=== PATIENT | female | born 2000 | race Caucasian/White ===

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

== ENCOUNTER 2019-03-09 15:22 | Emergency (ER) | payer BC ==
[2019-03-09] MEDS ORDERED: ACETAMINOPHEN 325 MG TABLET (FP) PO ONE (15:26)
--- NOTE | 2019-03-09 15:26 | PDOC ---
History of Present Illness - General Chief Complaint: Pain, Acute Stated Complaint: LEFT WRIST PAIN Time Seen by Provider: 03/09/19 15:25 Past History - Past Medical History Allergies/Adverse Reactions: Allergies Allergy/AdvReac Type Severity Reaction Status Date / Time amoxicillin [Amoxicillin] Allergy Verified 03/09/19 15:22 Home Medications: Ambulatory Orders NK [No Known Home Medication] 03/09/19 COPD: No - Immunization History Immunization Up to Date: Yes - Suicide/Smoking/Psychosocial Hx Smoking Status: No Smoking History: Never smoked Have you smoked in the past 12 months: No Number of Cigarettes Smoked Daily: 0 Hx Alcohol Use: No Drug/Substance Use Hx: No Substance Use Type: None *DC/Admit/Observation/Transfer - Discharge Dispostion Condition at time of disposition: Stable - Referrals - Patient Instructions - Post Discharge Activity
[2019-03-09] MEDS ORDERED: ACETAMINOPHEN 325 MG TABLET (FP) ONE (15:29)
[2019-03-09 15:37] VITALS: BP 131/88; PULSE 80; TEMP 98.4; BMI 21.1
--- NOTE | 2019-03-09 16:45 | PDOC ---
Documentation entered by Bonnie Lockhart SCRIBE, acting as scribe for Zeferino Burr MD. Zeferino Burr MD: This documentation has been prepared by the jose angelibRichy worley Natalie, SCRIBE, under my direction and personally reviewed by me in its entirety. I confirm that the documentation accurately reflects all work, treatment, procedures, and medical decision making performed by me. History of Present Illness - General Chief Complaint: Pain, Acute Stated Complaint: LEFT WRIST PAIN Time Seen by Provider: 03/09/19 15:25 History Source: Patient Exam Limitations: No Limitations - History of Present Illness Initial Comments: 03/09/19 15:55 The patient is a 18-year-old female, with no past medical history, who presents to the ED with LT wrist pain s/p mechanical fall. The patient states that she tripped and fell onto her LT wrist as she was getting out of her car. She denies any head trauma or loss of consciousness. The patient denies having any other injuries or symptoms. Allergies: Amoxicillin. Past History - Past Medical History Allergies/Adverse Reactions: Allergies Allergy/AdvReac Type Severity Reaction Status Date / Time amoxicillin [Amoxicillin] Allergy Verified 03/09/19 15:22 Home Medications: Ambulatory Orders NK [No Known Home Medication] 03/09/19 COPD: No - Immunization History Immunization Up to Date: Yes - Suicide/Smoking/Psychosocial Hx Smoking Status: No Smoking History: Never smoked Have you smoked in the past 12 months: No Number of Cigarettes Smoked Daily: 0 Hx Alcohol Use: No Drug/Substance Use Hx: No Substance Use Type: None Review of Systems - Review of Systems Able to Perform ROS?: Yes Comments:: 03/09/19 15:55 ADULT BASIC ROS CONSTITUTIONAL: Absent: fever, no chills, no fatigue EYES: Absent: visual changes ENT: Absent: ear pain, no sore throat CARDIOVASCULAR: Absent: chest pain, no palpitations RESPIRATORY: Absent: cough, no SOB GI: Absent: abdominal pain, no nausea, no vomiting, no constipation, no diarrhea GENITOURINARY: Absent: dysuria, no frequency, no hematuria MUSKULOSKELETAL: (+)LT wrist pain. Absent: back pain, no arthralgia. SKIN: Absent: rash NEURO: Absent: headache *Physical Exam - Vital Signs Last Vital Signs Temp Pulse Resp BP Pulse Ox 98.4 F 80 16 131/88 100 03/09/19 15:22 03/09/19 15:22 03/09/19 15:22 03/09/19 15:22 03/09/19 15:22 - Physical Exam Comments: 03/09/19 15:56 GENERAL: Well-appearing, well-nourished. No apparent distress. HEENT: Normocephalic, atraumatic. PERRL, EOM intact. No trauma to the neck. CARDIOVASCULAR: Normal S1, S2. Regular rate and rhythm. PULMONARY: Clear to auscultation bilaterally. ABDOMEN: Soft, non-distended, non-tender. EXTREMITIES: (+)Swelling of the LT wrist primarily on the ulnar aspect. Point tenderness on ulnar styloid plus minimal tenderness over distal radius. No visible or palpable deformity. Pulses full. No distal, sensory, or motor deficits. No visible or palpable trauma to the hand forearm, above the wrist, elbow, upper arm, or shoulder. SKIN: Warm, dry. No rash NEUROLOGICAL: No focal neurological deficits. ED Treatment Course - ADDITIONAL ORDERS Additional order review: Laboratory Results 03/09/19 15:32 Urine HCG, Qual Negative - RADIOLOGY Radiology Studies Ordered: Category Date Time Status WRIST-LEFT [RAD] Stat Radiology 03/09/19 15:57 Taken - Medications Given in the ED: ED Medications Discontinued Medications Generic Name Dose Route Start Last Admin Trade Name Sukhq PRN Reason Stop Dose Admin Acetaminophen 650 mg 03/09/19 15:26 03/09/19 15:31 Tylenol - PO 03/09/19 15:27 650 mg ONCE ONE Administration Medical Decision Making - Medical Decision Making 03/09/19 16:42 X-ray negative for fracture Volar splint applied for comfort. Rest ice and elevation. Motrin. Orthopedic referral if pain or swelling persists. No significant pain or distress at discharge *DC/Admit/Observation/Transfer Diagnosis at time of Disposition: Contusion, wrist Qualifiers: Encounter type: initial encounter Laterality: left Qualified Code(s): S60.212A - Contusion of left wrist, initial encounter - Discharge Dispostion Disposition: HOME Condition at time of disposition: Stable Decision to Admit order: No - Referrals Referrals: Eliceo Montejo MD [Staff Physician] - 1 week - Patient Instructions Printed Discharge Instructions: Contusion Additional Instructions: Rest ice and elevate splint for comfort. Take Tylenol or Motrin for pain and swelling. See orthopedist if pain or swelling persists 5-7 days. - Post Discharge Activity
== END 2019-03-09 16:54 | disposition home or self-care (01) ==
LOC: FER 15:22
PROC: 2W3DX1Z Immobilization of Left Lower Arm using Splint (ICD-10-PCS; principal; 2019-03-09)
DX: S60.212A Contusion of left wrist, initial encounter (principal); W18.39XA Other fall on same level, initial encounter; Y93.89 Activity, other specified; Y92.410 Unspecified street and highway as the place of occurrence of the external cause
CPT/HCPCS: 73110-TC-LT-FY; 84703; 99282-25

== ENCOUNTER 2019-04-04 10:41 | Emergency (ER) | payer BC ==
[2019-04-04 10:47] VITALS: BP 134/83; PULSE 84; TEMP 98.7; BMI 21.9
--- NOTE | 2019-04-04 11:07 | PDOC ---
History of Present Illness <Clari Bella - Last Filed: 04/04/19 13:12> - General History Source: Patient - History of Present Illness Timing/Duration: reports: constant Quality: reports: stabbing Abdominal Pain Onset Location: reports: other <Felicia Cook - Last Filed: 04/04/19 15:14> - General Chief Complaint: Pain, Acute Stated Complaint: ABD PAIN Time Seen by Provider: 04/04/19 10:55 Past History <Clari Bella - Last Filed: 04/04/19 13:12> - Past Medical History COPD: No - Immunization History Immunization Up to Date: Yes - Suicide/Smoking/Psychosocial Hx Smoking Status: No Smoking History: Never smoked Have you smoked in the past 12 months: No Number of Cigarettes Smoked Daily: 0 Information on smoking cessation initiated: No Hx Alcohol Use: No Drug/Substance Use Hx: No Substance Use Type: None <Felicia Cook - Last Filed: 04/04/19 15:14> - Past Medical History Allergies/Adverse Reactions: Allergies Allergy/AdvReac Type Severity Reaction Status Date / Time amoxicillin [Amoxicillin] Allergy Verified 03/09/19 15:22 Home Medications: Ambulatory Orders NK [No Known Home Medication] 03/09/19 Review of Systems - Review of Systems Constitutional: No: Chills, Fever Respiratory: No: Shortness of Breath Cardiac (ROS): No: Chest Pain ABD/GI: No: Blood Streaked Bowels, Constipated, Diarrhea, Nausea, Rectal Bleeding, Vomiting : No: Burning, Dysuria, Discharge, Flank Pain, Hematuria <Felicia Cook - Last Filed: 04/04/19 15:14> *Physical Exam - Vital Signs Last Vital Signs Temp Pulse Resp BP Pulse Ox 98.7 F 84 18 134/83 100 04/04/19 10:44 04/04/19 10:44 04/04/19 10:44 04/04/19 10:44 04/04/19 10:44 <Clari Bella - Last Filed: 04/04/19 13:12> - Vital Signs Last Vital Signs Temp Pulse Resp BP Pulse Ox 98.7 F 84 18 134/83 100 04/04/19 10:44 04/04/19 10:44 04/04/19 10:44 04/04/19 10:44 04/04/19 10:44 - Physical Exam General Appearance: Yes: Appropriately Dressed, Mild Distress HEENT: positive: Normal Voice Respiratory/Chest: negative: Respiratory Distress Gastrointestinal/Abdominal: positive: Normal Bowel Sounds, Tender (poorly localized ttp), Soft. negative: Distended, Guarding, Rebound Musculoskeletal: negative: CVA Tenderness Integumentary: positive: Dry, Warm Neurologic: positive: Fully Oriented, Alert, Normal Mood/Affect <Felicia Cook - Last Filed: 04/04/19 15:14> ED Treatment Course - LABORATORY CBC & Chemistry Diagram: 04/04/19 11:31 04/04/19 11:31 - ADDITIONAL ORDERS Additional order review: Laboratory Results 04/04/19 04/04/19 04/04/19 11:31 11:31 11:31 Sodium 140 Potassium 3.9 Chloride 108 H Carbon Dioxide 26 Anion Gap 6 L BUN 13.3 Creatinine 0.9 Est GFR (CKD-EPI)AfAm 107.43 Est GFR (CKD-EPI)NonAf 92.69 Random Glucose 87 Calcium 9.1 Total Bilirubin 0.4 AST 13 L ALT 12 L Alkaline Phosphatase 52 Total Protein 7.7 Albumin 4.4 Urine Color Yellow Urine Appearance Clear Urine pH 6.0 Ur Specific [place] 1.006 L Urine Protein Negative Urine Glucose (UA) Negative Urine Ketones Negative Urine Blood Trace Urine Nitrite Negative Urine Bilirubin Negative Urine Urobilinogen 0.2 Ur Leukocyte Esterase Negative Urine WBC (Auto) 0 Urine RBC (Auto) 0 Urine Casts (Auto) 1 U Epithel Cells (Auto) 0.8 Urine Bacteria (Auto) 16.6 Urine HCG, Qual Negative 04/04/19 11:31 RBC 4.05 MCV 93.8 MCHC 33.9 RDW 13.1 MPV 8.9 Neutrophils % 65.5 Lymphocytes % 23.1 Monocytes % 9.3 Eosinophils % 0.7 Basophils % 1.4 - Medications Given in the ED: ED Medications Discontinued Medications Generic Name Dose Route Start Last Admin Trade Name Freq PRN Reason Stop Dose Admin Ketorolac Tromethamine 30 mg 04/04/19 11:11 04/04/19 12:17 Toradol Injection - IVPUSH 04/04/19 11:12 30 mg ONCE ONE Administration <Clari Bella - Last Filed: 04/04/19 13:12> - LABORATORY CBC & Chemistry Diagram: 04/04/19 11:31 04/04/19 11:31 <Felicia Cook - Last Filed: 04/04/19 15:14> Medical Decision Making - Medical Decision Making The patient was seen and evaluated in conjunction with midlevel provider under my direct supervision, ancillary studies were reviewed. I agree with the plan as outlined ILIA Cook. HPI, workup/dispo as outlined. VS reviewed, wnl. labs/ imaging, reassess 04/04/19 13:12 <Clari Bella - Last Filed: 04/04/19 13:12> - Medical Decision Making 04/04/19 11:07 18-year-old female, h/o anxiety (not on meds), here with abdominal pain. Patient states for the past 5 days has had a "stabbing" pain that starts in her lower abdomen and goes all the way up to her chest, constant with 10/10 in severity. Taking [id number] meds with no relief. Denies nausea, vomiting , fever, chills, change to bowel movements or dysuria. Patient admits to having similar pain on and off for the past several years, usually to lower abd and seen by pmd and life tester [employer] w/ no clear dx on multiple w/u per pt. States this episode more severe and constant See exam Abd pain Recurrent No dx on w/u in past Worse now w/ no relief w/ OTC meds Stable w/ poorly localized ttp but including RLQ -pain control -labs -CT though low suspicion for acute pathology, given recurrent pain 04/04/19 15:[address] unremarkable. Patient currently pain free. Discharge in care of father to continue following up with PMD and [facility] for chronic abdominal pain <Felicia Cook - Last Filed: 04/04/19 15:14> *DC/Admit/Observation/Transfer <Clari Bella - Last Filed: 04/04/19 13:12> <Felicia Cook - Last Filed: 04/04/19 15:14> Diagnosis at time of Disposition: Lower abdominal pain - Discharge Dispostion Disposition: HOME Condition at time of disposition: Improved - Referrals Referrals: Justice Ovalles MD [Primary Care Provider] - - Patient Instructions Printed Discharge Instructions: DI for Abdominal Pain-Adult Additional Instructions: The cause of your pain is unclear as your labs and CT were normal Please continue to follow up with your PMD and [facility] for further evaluation - Post Discharge Activity Forms/Work/School Notes: Back to Work
[2019-04-04] MEDS ORDERED: KETOROLAC TROMETHAMINE 30 MG/1 ML VIAL IVPUSH ONE (11:11)
[2019-04-04] MEDS ORDERED: KETOROLAC TROMETHAMINE 30 MG/1 ML VIAL ONE (12:06)
[2019-04-04 12:18] LABS: BASO % 1.4 % (0-2.0); EOS % 0.7 % (0-4.5); HEMOGLOBIN 12.9 GM/dL (10.7-15.3); LYMPH % 23.1 % (8-40); MCH 31.8 pg (25.7-33.7); MCHC 33.9 g/dl (32.0-36.0); MEAN CELL VOLUME 93.8 fl (80-96); MEAN PLT VOLUME 8.9 fl (7.5-11.1); MONO % 9.3 % (3.8-10.2); NEUT % 65.5 % (42.8-82.8); PLATELET COUNT 249 K/MM3 (134-434); RBC 4.05 M/mm3 (3.60-5.2); RDW 13.1 % (11.6-15.6); WHITE BLOOD COUNT 6.1 K/mm3 (4.0-10.0)
[2019-04-04 12:36] LABS: EPI CELLS 0.8 /HPF (0-5/HPF); HYALINE CASTS 1 /lpf (0-8); URINE APPEARANCE CLEAR; URINE BACTERIA 16.6 /hpf (NEGATIVE); URINE BILIRUBIN NEGATIVE (NEGATIVE); URINE COLOR YELLOW; URINE GLUCOSE (UA) NEGATIVE (NEGATIVE); URINE KETONE NEGATIVE (NEGATIVE); URINE LEUK ESTERASE NEGATIVE (NEGATIVE); URINE NITRITE NEGATIVE (NEGATIVE); URINE PROTEIN NEGATIVE (NEGATIVE); URINE RBC 0 /hpf (0-4); URINE UROBILINOGEN 0.2 mg/dL (0.2-1.0); URINE WBC 0 /hpf (0-5)
[2019-04-04 12:50] LABS: ALBUMIN 4.4 g/dl (3.4-5.0); BILIRUBIN,TOTAL 0.4 mg/dL (0.2-1); BLOOD UREA NITROGEN 13.3 mg/dL (7-18); CALCIUM 9.1 mg/dL (8.5-10.1); CREATININE 0.9 mg/dL (0.55-1.3); POTASSIUM 3.9 mmol/L (3.5-5.1); TOT PROT 7.7 g/dl (6.4-8.2)
== END 2019-04-04 15:20 | disposition home or self-care (01) ==
LOC: JER 10:41
PROC: 3E0333Z Introduction of Anti-inflammatory into Peripheral Vein, Percutaneous Approach (ICD-10-PCS; principal; 2019-04-04)
DX: R10.30 Lower abdominal pain, unspecified (principal)
CPT/HCPCS: 36415; 74177-TC; 80053; 81003; 83690; 84703; 85025; 99283-25

== ENCOUNTER 2023-04-16 15:05 | Emergency (ER) | payer BC ==
[2023-04-16 15:50] VITALS: RESP 18; TEMP 98.9; BMI 21.9
[2023-04-16] MEDS ORDERED: ACETAMINOPHEN 1000 MG/100 ML BAG IVPB ONE (15:58)
[2023-04-16] MEDS ORDERED: ONDANSETRON 4 MG/2 ML VIAL IVPUSH ONE (15:59)
[2023-04-16] MEDS ORDERED: MAG HYDROX/AL HYDROX/SIMETH 30 ML UNIT-DOSE CUP PO ONE (15:59)
[2023-04-16] MEDS ORDERED: FAMOTIDINE 20 MG/50 ML IVPB 20 MG/50 ML MG IVPB ONE ×2 (15:59→16:13)
[2023-04-16] MEDS ORDERED: ONDANSETRON 4 MG/2 ML VIAL ONE (16:13)
[2023-04-16] MEDS ORDERED: ACETAMINOPHEN INJECTION 100 ML IVPB ONE (16:13)
[2023-04-16] MEDS ORDERED: MAG HYDROX/AL HYDROX/SIMETH 30 ML UNIT-DOSE CUP ONE (16:13)
[2023-04-16 16:23] LABS: HEMATOCRIT 40.3 % (32.4-45.2); HEMOGLOBIN 13.9 G/dL (10.7-15.3); MCHC 34.4 g/dl (32.0-36.0); MEAN CELL VOLUME 95.9 fl (80-96); MEAN PLT VOLUME 7.5 fl (7.5-11.1); PLATELET COUNT 287.8 10^3/uL (134-434); RDW 13.6 % (11.6-15.6); WHITE BLOOD COUNT 7.5 10^3/uL (4.0-10.8)
[2023-04-16 16:40] LABS: ALBUMIN 4.9 g/dl (3.4-5.0); BILIRUBIN,TOTAL 0.4 mg/dl (0.2-1); CALCIUM 9.6 mg/dl (8.5-10.1); CREATININE 0.9 mg/dl (0.6-1.3); POTASSIUM 3.8 mmol/L (3.5-5.1); SGOT/AST 13.3 U/L (15-37); SGPT/ALT 7.3 U/L (7-52); TOT PROT 7.6 g/dl (6.4-8.2)
[2023-04-16 17:04] LABS: URIC ACID CRYSTALS FEW /hpf (NONE SEEN)
[2023-04-16 17:06] LABS: PLATELET ESTIMATE ADEQUATE
[2023-04-16] MEDS ORDERED: KETOROLAC TROMETHAMINE 15 MG/ML VIAL IVPUSH ONE (18:02)
[2023-04-16] MEDS ORDERED: KETOROLAC TROMETHAMINE 30 MG/1 ML VIAL ONE (18:04)
[2023-04-16] MEDS ORDERED: KETOROLAC TROMETHAMINE 15 MG/ML VIAL ONE (19:34)
[2023-04-16] MEDS ORDERED: KETOROLAC TROMETHAMINE 30 MG/1 ML VIAL IVPUSH ONE (19:56)
[2023-04-16 20:57] VITALS: BP 110/58; PULSE 79
== END 2023-04-16 21:00 | disposition home or self-care (01) ==
LOC: FER 15:05
PROC: 3E033GC Introduction of Other Therapeutic Substance into Peripheral Vein, Percutaneous Approach (ICD-10-PCS; principal; 2023-04-16)
PROC: 3E033NZ Introduction of Analgesics, Hypnotics, Sedatives into Peripheral Vein, Percutaneous Approach (ICD-10-PCS; 2023-04-16)
PROC: 3E0333Z Introduction of Anti-inflammatory into Peripheral Vein, Percutaneous Approach (ICD-10-PCS; 2023-04-16)
PROC: 3E033GC Introduction of Other Therapeutic Substance into Peripheral Vein, Percutaneous Approach (ICD-10-PCS; 2023-04-16)
PROC: 3E0333Z Introduction of Anti-inflammatory into Peripheral Vein, Percutaneous Approach (ICD-10-PCS; 2023-04-16)
DX: R10.31 Right lower quadrant pain (principal); R11.0 Nausea; N83.202 Unspecified ovarian cyst, left side
CPT/HCPCS: 36415; 76830-TC; 80053; 81003; 81015; 83605; 83690; 84703; 85027; 87086; 99284-25

== ENCOUNTER 2023-06-09 18:10 | Observation (INO) | payer BC ==
[2023-06-09 18:43] VITALS: BMI 21.7
[2023-06-09 19:32] LABS: BASO % 1.3 % (0-2.0); EOS % 0.9 % (0-4.5); HEMATOCRIT 36.6 % (32.4-45.2); HEMOGLOBIN 12.9 GM/dL (10.7-15.3); LYMPH % 27.4 % (8-40); MCH 32.5 pg (25.7-33.7); MCHC 35.2 g/dl (32.0-36.0); MEAN CELL VOLUME 92.1 fl (80-96); MEAN PLT VOLUME 8.1 fl (7.5-11.1); MONO % 7.1 % (3.8-10.2); NEUT % 63.3 % (42.8-82.8); PLATELET COUNT 275 10^3/uL (134-434); RBC 3.97 M/mm3 (3.60-5.2); RDW 12.5 % (11.6-15.6); WHITE BLOOD COUNT 8.2 K/mm3 (4.0-10.0)
[2023-06-09 19:35] LABS: INR 1.12 (0.83-1.09)
[2023-06-09 19:47] LABS: POTASSIUM 3.5 mmol/L (3.5-5.1)
[2023-06-09 19:49] LABS: ALBUMIN 4.3 g/dl (3.4-5.0); BLOOD UREA NITROGEN 7.2 mg/dL (7-18); PH,URINE 5.5 (5.0-8.0); URINE APPEARANCE CLEAR; URINE BILIRUBIN NEGATIVE (NEGATIVE); URINE COLOR YELLOW; URINE GLUCOSE (UA) NEGATIVE (NEGATIVE); URINE KETONE TRACE (NEGATIVE); URINE LEUK ESTERASE NEGATIVE (NEGATIVE); URINE NITRITE NEGATIVE (NEGATIVE); URINE PROTEIN NEGATIVE (NEGATIVE); URINE UROBILINOGEN 0.2 mg/dL (0.2-1.0)
[2023-06-09 19:53] LABS: CREATININE 0.8 mg/dL (0.55-1.3)
[2023-06-09 19:55] LABS: BILIRUBIN,TOTAL 0.5 mg/dL (0.2-1); TOT PROT 7.3 g/dl (6.4-8.2)
[2023-06-09] MEDS ORDERED: ACETAMINOPHEN 500 MG TABLET (FP) PO ONE (20:14)
[2023-06-09] MEDS ORDERED: ACETAMINOPHEN 500 MG TABLET (FP) ONE (20:17)
[2023-06-09] MEDS ORDERED: KETOROLAC TROMETHAMINE 15 MG/ML VIAL IVPUSH ONE (23:33)
[2023-06-09] MEDS ORDERED: METHOTREXATE SODIUM/PF 25 MG/ML VIAL IM ONE (23:33)
[2023-06-09] MEDS ORDERED: SODIUM CHLORIDE 1,000 ML IV SCH (23:45)
[2023-06-10] MEDS ORDERED: RHO(D) IMMUNE GLOBULIN 1,500 UNIT DISP.SYRIN IM ONE (00:05)
[2023-06-10] MEDS ORDERED: KETOROLAC TROMETHAMINE 15 MG/ML VIAL ONE (00:19)
[2023-06-10 00:26] LABS: BASO % 1.1 % (0-2.0); EOS % 0.3 % (0-4.5); HEMATOCRIT 34.7 % (32.4-45.2); LYMPH % 24.4 % (8-40); MCH 31.8 pg (25.7-33.7); MCHC 34.7 g/dl (32.0-36.0); MEAN CELL VOLUME 91.5 fl (80-96); MEAN PLT VOLUME 8.3 fl (7.5-11.1); MONO % 6.3 % (3.8-10.2); NEUT % 67.9 % (42.8-82.8); PLATELET COUNT 264 10^3/uL (134-434); RBC 3.79 M/mm3 (3.60-5.2); RDW 12.3 % (11.6-15.6); WHITE BLOOD COUNT 10.6 K/mm3 (4.0-10.0)
[2023-06-10] MEDS ORDERED: IBUPROFEN 800 MG/8 ML IJ IVPB PRN (02:40)
[2023-06-10] MEDS ORDERED: ACETAMINOPHEN 1000 MG/100 ML BAG IVPB PRN (02:43)
[2023-06-10 03:11] VITALS: RESP 18
[2023-06-10 08:55] LABS: EOS % 1.1 % (0-4.5); HEMATOCRIT 33.5 % (32.4-45.2); HEMOGLOBIN 11.3 GM/dL (10.7-15.3); MCH 31.7 pg (25.7-33.7); MCHC 33.8 g/dl (32.0-36.0); MEAN CELL VOLUME 93.9 fl (80-96); MEAN PLT VOLUME 8.4 fl (7.5-11.1); MONO % 11.2 % (3.8-10.2); NEUT % 51.7 % (42.8-82.8); PLATELET COUNT 257 10^3/uL (134-434); RBC 3.57 M/mm3 (3.60-5.2); RDW 12.4 % (11.6-15.6); WHITE BLOOD COUNT 5.7 K/mm3 (4.0-10.0)
[2023-06-10 09:06] VITALS: TEMP 97.8
[2023-06-10] MEDS ORDERED: DOCUSATE SODIUM 100 MG CAPSULE (FP) PO PRN (10:57)
[2023-06-10] MEDS ORDERED: BISACODYL 10 MG SUPP.RECT PR ONE (10:57)
[2023-06-10] MEDS ORDERED: KETOROLAC TROMETHAMINE 15 MG/ML VIAL IVPUSH ONE (10:59)
[2023-06-10 14:56] VITALS: BP 114/72; PULSE 78
[2023-06-11] MEDS ORDERED: ACETAMINOPHEN 325 MG TABLET (FP) PO PRN (02:40)
[2023-06-11] MEDS ORDERED: IBUPROFEN 600 MG TABLET (FP) PO PRN (02:44)
== END 2023-06-10 17:35 | disposition home or self-care (01) ==
LOC: JER 18:10 → JERBED 23:33 → J3W 06-10 01:48
PROVIDERS: ADMIT Obstetrics & Gynecology; ATTEND Obstetrics & Gynecology
PROC: 3E033NZ Introduction of Analgesics, Hypnotics, Sedatives into Peripheral Vein, Percutaneous Approach (ICD-10-PCS; principal; 2023-06-09)
PROC: 3E033GC Introduction of Other Therapeutic Substance into Peripheral Vein, Percutaneous Approach (ICD-10-PCS; 2023-06-09)
PROC: 3E0333Z Introduction of Anti-inflammatory into Peripheral Vein, Percutaneous Approach (ICD-10-PCS; 2023-06-09)
PROC: 3E023GC Introduction of Other Therapeutic Substance into Muscle, Percutaneous Approach (ICD-10-PCS; 2023-06-09)
DX: O00.90 Unspecified ectopic pregnancy without intrauterine pregnancy (principal); Z86.19 Personal history of other infectious and parasitic diseases; Z88.0 Allergy status to penicillin
CPT/HCPCS: 36415; 76817-TC; 76830-TC; 80053; 81003; 84702; 84703; 85025; 85610; 86870; 86902; 87086; 87635; 99285-25; G0378; J9260

== ENCOUNTER 2023-06-11 13:48 | Inpatient (IN) | payer BC ==
[2023-06-11 13:55] VITALS: BMI 22.4
[2023-06-11] MEDS ORDERED: morphine CARPU-JECT 2 MG/1 ML DISP.SYRIN IVPUSH ONE ×2 (15:34→16:48)
[2023-06-11 15:41] LABS: BASO % 0.7 % (0-2.0); EOS % 0.2 % (0-4.5); HEMATOCRIT 36.1 % (32.4-45.2); HEMOGLOBIN 12.6 GM/dL (10.7-15.3); LYMPH % 11.9 % (8-40); MCH 32.2 pg (25.7-33.7); MCHC 34.9 g/dl (32.0-36.0); MEAN CELL VOLUME 92.5 fl (80-96); MEAN PLT VOLUME 8.2 fl (7.5-11.1); MONO % 5.6 % (3.8-10.2); NEUT % 81.6 % (42.8-82.8); PLATELET COUNT 280 10^3/uL (134-434); RDW 12.5 % (11.6-15.6); WHITE BLOOD COUNT 10.4 K/mm3 (4.0-10.0)
[2023-06-11] MEDS ORDERED: ONDANSETRON 4 MG/2 ML VIAL IVPUSH ONE (15:42)
[2023-06-11] MEDS ORDERED: ONDANSETRON 4 MG/2 ML VIAL ONE (15:45)
[2023-06-11 15:49] LABS: INR 1.16 (0.83-1.09); PROTHROMBIN TIME (PATIENT) 13.4 SEC (9.7-13.0)
[2023-06-11 15:51] LABS: ACTIVATED PTT 32.3 SECONDS (25.2-36.5)
[2023-06-11 16:02] LABS: POTASSIUM 3.9 mmol/L (3.5-5.1)
[2023-06-11 16:05] LABS: CALCIUM 8.6 mg/dL (8.5-10.1)
[2023-06-11 16:06] LABS: ALBUMIN 4.1 g/dl (3.4-5.0); BLOOD UREA NITROGEN 7.6 mg/dL (7-18)
[2023-06-11 16:09] LABS: CREATININE 0.7 mg/dL (0.55-1.3)
[2023-06-11 16:10] LABS: BILIRUBIN,TOTAL 0.8 mg/dL (0.2-1); TOT PROT 7.1 g/dl (6.4-8.2)
[2023-06-11 16:27] LABS: URINE APPEARANCE CLEAR; URINE BILIRUBIN NEGATIVE (NEGATIVE); URINE COLOR YELLOW; URINE GLUCOSE (UA) NEGATIVE (NEGATIVE); URINE KETONE 3+ (NEGATIVE); URINE LEUK ESTERASE NEGATIVE (NEGATIVE); URINE NITRITE NEGATIVE (NEGATIVE); URINE PROTEIN NEGATIVE (NEGATIVE)
[2023-06-11] MEDS ORDERED: morphine SULFATE 4 MG/ML VIAL ONE ×2 (16:53→19:51)
[2023-06-11] MEDS ORDERED: morphine CARPU-JECT 4 MG/1 ML DISP.SYRIN IVPUSH ONE (19:47)
[2023-06-11] MEDS ORDERED: PROPOFOL 40 ML ONE (20:06)
[2023-06-11] MEDS ORDERED: ROCURONIUM BROMIDE 50 MG/5 ML SYRINGE ONE (20:07)
[2023-06-11] MEDS ORDERED: BUPIVACAINE HCL/PF 0.5% (5MG/ML) 10 ML VIAL ONE (20:29)
[2023-06-11] MEDS ORDERED: MIDAZOLAM HCL 2 MG/2 ML SINGLE DOSE VIAL ONE (20:44)
[2023-06-11] MEDS ORDERED: HYDROmorphone HCl 2 MG/ML VIAL ONE (20:58)
[2023-06-11] MEDS ORDERED: ceFAZolin SODIUM 1 GM VIAL IVPB ONE (21:10)
[2023-06-11] MEDS ORDERED: BUPIVACAINE HCL/PF 0.5% (5 MG/ML) 30 ML VIAL IJ ONE (21:43)
[2023-06-11] MEDS ORDERED: SUGAMMADEX SODIUM 200 MG/2 ML VIAL ONE (21:44)
[2023-06-11] MEDS ORDERED: ONDANSETRON 4 MG/2 ML VIAL IVPUSH PRN ×2 (22:08→22:16)
[2023-06-11] MEDS ORDERED: LACTATED RINGERS SOLUTION 1,000 ML IV SCH (22:15)
[2023-06-11] MEDS ORDERED: IBUPROFEN 800 MG/8 ML IJ IVPB PRN (22:16)
[2023-06-11] MEDS ORDERED: IBUPROFEN 600 MG TABLET (FP) PO PRN (22:16)
[2023-06-11] MEDS ORDERED: ELECTROLYTE-148 SOLN 1,000 ML IV SCH (22:30)
[2023-06-12] MEDS ORDERED: IBUPROFEN 800 MG/8 ML IJ IVPB PRN (00:21)
[2023-06-12] MEDS ORDERED: IBUPROFEN 600 MG TABLET (FP) PO PRN (00:22)
[2023-06-12] MEDS: oxyCODONE HCL 5 MG TABLET PO PRN ×2 (04:10→11:35)
[2023-06-12 06:07] VITALS: RESP 18
[2023-06-12 09:10] VITALS: BP 114/62; PULSE 98; TEMP 98.3
[2023-06-12 09:47] LABS: HEMATOCRIT 34.4 % (32.4-45.2); HEMOGLOBIN 11.4 GM/dL (10.7-15.3); MCH 31.3 pg (25.7-33.7); MCHC 33.3 g/dl (32.0-36.0); MEAN CELL VOLUME 93.9 fl (80-96); MEAN PLT VOLUME 8.2 fl (7.5-11.1); PLATELET COUNT 239 10^3/uL (134-434); RBC 3.66 M/mm3 (3.60-5.2); RDW 12.1 % (11.6-15.6); WHITE BLOOD COUNT 9.6 K/mm3 (4.0-10.0)
[2023-06-12 10:00] LABS: POTASSIUM 3.9 mmol/L (3.5-5.1)
[2023-06-12] MEDS ORDERED: DOCUSATE SODIUM 100 MG CAPSULE (FP) PO SCH (10:00)
[2023-06-12 10:02] LABS: CALCIUM 8.1 mg/dL (8.5-10.1)
[2023-06-12 10:03] LABS: ALBUMIN 3.6 g/dl (3.4-5.0); BLOOD UREA NITROGEN 8.1 mg/dL (7-18)
[2023-06-12 10:06] LABS: CREATININE 0.8 mg/dL (0.55-1.3)
[2023-06-12 10:07] LABS: BILIRUBIN,TOTAL 0.6 mg/dL (0.2-1); TOT PROT 6.8 g/dl (6.4-8.2)
== END 2023-06-12 12:37 | disposition home or self-care (01) | DRG 817 ==
LOC: JER 13:48 → JASUSAT 18:44 → J3W 22:16
PROVIDERS: ADMIT Obstetrics & Gynecology; ATTEND Obstetrics & Gynecology
PROC: 0UC Female Reproductive System, Extirpation (ICD-10-PCS; 2023-06-11)
PROC: 10D27ZZ Extraction of Products of Conception, Ectopic, Via Natural or Artificial Opening (ICD-10-PCS; principal; 2023-06-11 19:30)
DX: O00.101 Right tubal pregnancy without intrauterine pregnancy (principal); K66.1 Hemoperitoneum
CPT/HCPCS: 36415; 76817-TC; 80048; 80053; 81003; 82962; 83690; 84702; 85025; 85027; 85610; 85730; 86850; 86870; 86900; 86901; 86902; 87086; 87186; 88305-TC; 94760; 99285-25